=== PATIENT | male | born 1995 | race African-American/Black ===

== ENCOUNTER 2025-05-25 21:53 | Emergency (ER) | payer SELFPAY ==
[~2025-05-25] VITALS: Ht 177.8 cm; Wt 73.0 kg
[2025-05-25 22:00] VITALS: O2SAT 98
[2025-05-25 23:07] LABS: BASOPHILS % 1.1 % (0.0-2.0); EOSINOPHILS % 1.0 % (0.0-5.0); HEMATOCRIT. 45.5 % (42.0-52.0); HEMOGLOBIN. 14.7 g/dL (14.0-18.0); LYMPHOCYTES % 32.5 % (20.0-50.0); MEAN PLATELET VOLUME 8.6 fl (7.4-10.4); MONOCYTES % 9.2 % (2.0-8.0); NEUTROPHILS % 56.2 % (40.0-76.0); PLATELET 173 x1000/uL (130-400); RED BLOOD CELL COUNT 5.58 mill/uL (4.7-6.1); RED CELL DISTRIBUTION WIDTH 13.7 % (11.6-14.6)
[2025-05-25 23:27] LABS: CREATININE 1.6 mg/dL (0.6-1.3); ETHANOL BLOOD 55 mg/dL (<10); UREA NITROGEN BLOOD 18 mg/dL (9-23)
[2025-05-25] MEDS: SODIUM CHLORIDE 0.9% 1,000 ML IV ONE (23:51)
[2025-05-26] MEDS: LEVETIRACETAM 1000MG PREMIX 100 ML IV ONE (00:16)
[2025-05-26] MEDS ORDERED: LEVE750T4 MT (00:28)
[2025-05-26 00:50] VITALS: BP 120/63; PULSE 66; RESP 18; TEMP 36.8; O2SAT 98
== END 2025-05-26 01:10 | disposition home or self-care (01) ==
LOC: ER 21:53
DX: R41.82 Altered mental status, unspecified (principal); Z86.73 Personal history of transient ischemic attack (TIA), and cerebral infarction without residual deficits
CPT/HCPCS: 80048; 80320; 85025; 36415; 71045; 70450; 93005; 99285; 96365; J7030; Z7610 ×2; J1953; A4606; G0480